=== PATIENT | male | born 1965 | race Asian ===

== ENCOUNTER 2019-11-07 12:56 | Inpatient (IN) | payer OTHER ==
--- NOTE | 2019-11-07 15:35 | BHS.RME ---
Substance Use & Tx History - Substance Use History Alcohol Substance amount: 6 packs Frequency of use: Daily Substance route: Oral Date of Last Use: 11/06/19 Cannabis Substance amount: $20 Frequency of use: Less than 3 times per week Substance route: Smoking Date of Last Use: 11/04/19 Heroin Substance amount: $40 Frequency of use: More than 3 times per week Substance route: Injection (ex: intravenous or skin popping) Date of Last Use: 11/06/19 Cocaine-Crack Substance amount: $20 Frequency of use: Daily Substance route: Smoking Date of Last Use: 11/06/19 Xanax Substance amount: 6 mg Frequency of use: Daily Substance route: Oral Date of Last Use: 11/07/19 (prescribed) - Last Treatment Date of last treatment: Jasmine Bartlett 2 years ago Where was last treatment: Detox Physical/Psych/Mental Status - Behavior General Behavior: Increased activity (restlessness, agitation) Eye Contact: Normal Other Behaviors: Mannerisms - Cooperativeness Cooperativeness: Cooperative - Thinking Thought Processes: Tight, Logical Thought content: Future oriented - Physical Health Problems Is patient presently having any pain?: No Does patient presently have any injuries (include location): No Does patient currently have a fever: No COWS - Scale Resting Pulse: 1= [place] 81-100 Sweatin= Chills/Flushing Restless Observation: 1= Difficult to Sit Still Pupil Size: 1= Pupils >than Normal Bone or Joint Aches: 2= Severe Diffuse Aches Runny Nose/ Eye Tearin= Runny Nose/Eyes GI Upset > 30mins: 2= Nausea/Diarrhea Tremor Observation: 2= Slight Tremor Visible Yawning Observation: 1= 1-2x During Session Anxiety or Irritability: 1=Feels Anxious/Irritable Goose Flesh Skin: 3=Piloerection COWS Score: 17 CIWA Nausea/Vomitin Muscle Tremors: 2 Anxiety: 2 Agitation: 2 Paroxysmal Sweats: 2 Orientation: 0-Oriented Tacttile Disturbances: 0-None Auditory Disturbances: 2-Mild Harshness/Frighten Visual Disturbances: 1-Very Mild Sensitivity Headache: 2-Mild CIWA-Ar Total Score: 15
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
--- NOTE | 2019-11-07 16:12 | HP ---
COWS - Scale Resting Pulse: 1= [place] 81-100 Sweatin= Chills/Flushing Restless Observation: 1= Difficult to Sit Still Pupil Size: 1= Pupils >than Normal Bone or Joint Aches: 2= Severe Diffuse Aches Runny Nose/ Eye Tearin= Runny Nose/Eyes GI Upset > 30mins: 2= Nausea/Diarrhea Tremor Observation: 2= Slight Tremor Visible Yawning Observation: 1= 1-2x During Session Anxiety or Irritability: 1=Feels Anxious/Irritable Goose Flesh Skin: 3=Piloerection COWS Score: 17 CIWA Score Nausea/Vomitin Muscle Tremors: 2 Anxiety: 2 Agitation: 2 Paroxysmal Sweats: 2 Orientation: 0-Oriented Tacttile Disturbances: 0-None Auditory Disturbances: 2-Mild Harshness/Frighten Visual Disturbances: 1-Very Mild Sensitivity Headache: 2-Mild CIWA-Ar Total Score: 15 - Admission Criteria OASAS Guidelines: Admission for Medically Managed Detox: Requires at least one of the followin. CIWA greater than 12 2. Seizures within the past 24 hours 3. Delirium tremens within the past 24 hours 4. Hallucinations within the past 24 hours 5. Acute intervention needed for co occurring medical disorder 6. Acute intervention needed for co occurring psychiatric disorder 7. Severe withdrawal that cannot be handled at a lower level of care (continued vomiting, continued diarrhea, abnormal vital signs) requiring intravenous medication and/or fluids 8. Patient presents the following: CIWA greater than 12 Admission Criteria Met: Admission criteria met Admitting History and Physical - Smoking History Smoking history: Current every day smoker Have you smoked in the past 12 months: Yes Admission [facility] Chief Complaint: I need detox Allergies/Adverse Reactions: Allergies Allergy/AdvReac Type Severity Reaction Status Date / Time No Known Allergies Allergy Verified 11/07/19 15:49 History of Present Illness: 54 year old man presents for detox from alcohol Patient History - Patient Medical History Hx Cardiac Disorders: No Hx Hypertension: No Hx Seizures: No Hx Diabetes: No Hx Gastrointestinal Disorders: No Hx Genitourinary Disorders: No Hx Sexually Transmitted Disorders: No Hx Renal Disease (ESRD): No Hx Depression: Yes Hx Suicide Attempt: No Hx Schizophrenia: No - Patient Surgical History Past Surgical History: Yes Hx Neurologic Surgery: No Hx Cataract Extraction: No Hx Cardiac Surgery: No Hx Lung Surgery: No Hx Breast Surgery: No Hx Breast Biopsy: No Hx Abdominal Surgery: No Hx Appendectomy: No Hx Cholecystectomy: No Hx Genitourinary Surgery: No Hx Section: No Hx Orthopedic Surgery: (LUMBAR FUSION 2019) Anesthesia Reaction: No - PPD History Previous Implant?: Yes Documented Results: Negative w/o proof Implanted On Prior [facility] Admission?: No - Smoking Cessation Smoking history: Current every day smoker Have you smoked in the past 12 months: Yes Hx Chewing Tobacco Use: No Initiated information on smoking cessation: Yes
[2019-11-07 16:13] VITALS: BMI 20.2
[2019-11-07] MEDS ORDERED: MAG HYDROX/AL HYDROX/SIMETH 30 ML UNIT-DOSE CUP PO PRN (16:27)
[2019-11-07] MEDS ORDERED: MAGNESIUM CITRATE 300 ML BOTTLE PO PRN (16:27)
[2019-11-07] MEDS ORDERED: NICOTINE POLACRILEX 2 MG GUM BUC PRN (16:27)
[2019-11-07] MEDS ORDERED: MAGNESIUM HYDROX 2400MG/30ML ORAL SUSPENSION 30 ML CUP PO PRN (16:27)
[2019-11-07] MEDS ORDERED: MENTHOL/PHENOL 1 EACH UD MM PRN (16:27)
[2019-11-07] MEDS ORDERED: ONDANSETRON *ODT* 4 MG TABLET SL ONE (16:27)
[2019-11-07] MEDS ORDERED: IBUPROFEN 400 MG TABLET (FP) PO PRN (16:27)
[2019-11-07] MEDS ORDERED: LORazepam 1 MG TABLET PO PRN (16:27)
[2019-11-07] MEDS ORDERED: hydrOXYzine PAMOATE 25 MG CAPSULE (FP) PO PRN (16:27)
[2019-11-07] MEDS ORDERED: BISMUTH SUBSALICYLATE 524 MG/30 ML UD PO PRN (16:27)
[2019-11-07] MEDS ORDERED: ACETAMINOPHEN 325 MG TABLET (FP) PO PRN ×2 (16:27)
[2019-11-07] MEDS ORDERED: METHOCARBAMOL 500 MG TABLET PO PRN (16:27)
[2019-11-07] MEDS: LORazepam 2 MG TABLET PO SCH ×2 (17:30→22:07)
[2019-11-07] MEDS: MELATONIN 5 MG TABLETS PO SCH (22:07)
[2019-11-07] MEDS: THIAMINE HCL 100 MG TABLET (FP) PO SCH (22:07)
[2019-11-08] MEDS: LORazepam 2 MG TABLET PO SCH ×4 (05:17→22:08)
--- NOTE | 2019-11-08 09:31 | PN ---
S CIWA - CIWA Score Nausea/Vomitin-Mild Nausea/No Vomiting Muscle Tremors: 4-Moderate,w/Arms Extend Anxiety: 4-Mod. Anxious/Guarded Agitation: 0-Normal Activity Paroxysmal Sweats: 1-Minimal Palms Moist Orientation: 0-Oriented Tacttile Disturbances: 1-Very Mild Itch/Numbness Auditory Disturbances: 0-None Visual Disturbances: 0-None Headache: 2-Mild CIWA-Ar Total Score: 13 BHS Progress Note (SOAP) Subjective: 54 years old male admitted on 11/07/19 for alcohol withdrawal sx management treating with ativan detox regiment methadone 125 mg po daily mr anguiano is taking xanax 2 mg po tid daily fill monthly last refilled 11/04/19 Objective: 11/08/19 09:35 Vital Signs - 24 hr 11/07/19 11/07/19 11/07/19 16:09 16:18 17:06 Temperature 98.2 F 98.2 F 97.1 F L Pulse Rate 81 81 60 Respiratory 18 18 18 Rate Blood Pressure 99/59 L 99/59 L 115/70 O2 Sat by Pulse 95 Oximetry (%) 11/07/19 11/08/19 11/08/19 20:38 06:44 08:35 Temperature 97.5 F L 97.1 F L 97.5 F L Pulse Rate 70 67 74 Respiratory 18 18 20 Rate Blood Pressure 102/63 100/60 101/61 O2 Sat by Pulse 96 97 Oximetry (%) 11/08/19 09:35 lab pending Assessment: 11/08/19 09:35 alcohol withdrawal Plan: ativan regiment
[2019-11-08] MEDS ORDERED: METHADONE HCL 40 MG DISPERSABLE TABLET ONE (09:34)
[2019-11-08] MEDS ORDERED: METHADONE HCL 5 MG TABLET ONE (09:34)
[2019-11-08] MEDS ORDERED: NICOTINE 14 MG/24 HOURS TOPICAL PATCH TD SCH (10:00)
[2019-11-08] MEDS ORDERED: SERTRALINE HCL 50 MG TABLET (FP) PO ONE (10:00)
[2019-11-08] MEDS ORDERED: METHADONE 120 MG, METHADONE 5 MG PO ONE (10:00)
[2019-11-08] MEDS ORDERED: METHADONE HCL 10 MG TABLET PO ONE (10:00)
[2019-11-08] MEDS ORDERED: PRENATAL VITAMINS W/ FOLIC ACID TABLET (FP) PO SCH (10:00)
[2019-11-08 11:02] LABS: HEMATOCRIT 40.4 % (35.4-49); HEMOGLOBIN 13.1 GM/dL (11.7-16.9); MCH 29.6 pg (25.7-33.7); MCHC 32.4 g/dl (32.0-35.9); MEAN CELL VOLUME 91.6 fl (80-96); MEAN PLT VOLUME 8.6 fl (7.5-11.1); PLATELET COUNT 234 K/MM3 (134-434); RBC 4.41 M/mm3 (4.00-5.60); RDW 13.6 % (11.9-15.9); WHITE BLOOD COUNT 4.3 K/mm3 (4.0-10.0)
[2019-11-08 11:15] LABS: ALBUMIN 3.4 g/dl (3.4-5.0); BILIRUBIN,TOTAL 0.2 mg/dL (0.2-1); BLOOD UREA NITROGEN 16.7 mg/dL (7-18); CALCIUM 9.2 mg/dL (8.5-10.1); CREATININE 0.9 mg/dL (0.55-1.3); POTASSIUM 4.1 mmol/L (3.5-5.1)
--- NOTE | 2019-11-08 16:09 | CONSULT ---
[facility] Psychiatric Consult - Data Date of interview: 11/08/19 Admission source: [facility] Identifying data: First visit to [facility] and admission to [address] [place] [address] for this [place]-born male self-referred for detoxification treatment. AURELIANO issues : alcohol, opioid, cocaine, nicotine. Patient is single, father of one, homeless, unemployed and supported on food stamps. Substance Abuse History: Discused with the patient. Mr Ashford admits to a long standing history of substance abuse (alcohol, cocaine, heroin, nicotine, marihuana). Uses xanax as well (prescribed). Patient is currently on methadone maintenance (1225 mg/day) at the [facility] program in [place], [place]. Smoking history: Current every day smoker. Have you smoked in the past 12 months: Yes. Aproximately how many cigarettes per day: 10. Hx Chewing Tobacco Use: No. Initiated information on smoking cessation: Yes. 'Breaking Loose' booklet given: 11/07/19. History of multiple AURELIANO treatment failures. Medical History: Medical profile is remarkable for hepatitis C (treated), antecedent of withdrawal-related seizures and laminectomy (lumbar fusion in 2018). Psychiatric History: Patient denies history of psychiatric hospitalizations. He has, however, been diagnosed with MDD and he is currently seeing a psychiatrist at the [facility] for mediucation management (xanax + zoloft). Doses not recalled. Mr Ashford denies history of suicide attempts. Physical/Sexual Abuse/Trauma History: Patient denies. Additional Comment: No toxicology for review. Mental Status Exam - Mental Status Exam Alert and Oriented to: Time, Place, Person Cognitive Function: Good Patient Appearance: Well Groomed Mood: Nervous, Withdrawn Affect: Mood Congruent, Constricted Patient Behavior: Fatigued, Appropriate, Cooperative Speech Pattern: Clear, Appropriate (fluent in ecuadorean) Voice Loudness: Normal Thought Process: Intact, Goal Oriented Thought Disorder: Not Present Hallucinations: Denies Suicidal Ideation: Denies Homicidal Ideation: Denies Insight/Judgement: Poor Sleep: Fair Appetite: Good Gait/Station: Other (not observed out of bed) Psychiatric Findings - Problem List ([place] 1, 2,3) (1) Alcohol dependence with withdrawal Current Visit: Yes Status: Acute Qualifiers: Complication of substance-induced condition: uncomplicated Qualified Code(s): F10.230 - Alcohol dependence with withdrawal, uncomplicated (2) Nicotine dependence Current Visit: Yes Status: Chronic Qualifiers: Nicotine product type: cigarettes Substance use status: uncomplicated Qualified Code(s): F17.210 - Nicotine dependence, cigarettes, uncomplicated (3) Cocaine abuse Current Visit: Yes Status: Chronic (4) Marijuana abuse Current Visit: Yes Status: Chronic (5) Substance induced mood disorder Current Visit: Yes Status: Suspected (6) History of depression Current Visit: Yes Status: Chronic - Initial Treatment Plan Initial Treatment Plan: Psychoeducation. Sleep hygiene. Detoxification. Support. Resumed, at patient's request : zoloft 50 mg po daily. Side effects/benefits discussed with the patient. Consent (verbal) granted to MD. Ngo.
[2019-11-08] MEDS: THIAMINE HCL 100 MG TABLET (FP) PO SCH (22:08)
[2019-11-08] MEDS: MELATONIN 5 MG TABLETS PO SCH (22:10)
[2019-11-09] MEDS ORDERED: METHADONE HCL 5 MG TABLET ONE (04:11)
[2019-11-09] MEDS ORDERED: METHADONE HCL 40 MG DISPERSABLE TABLET ONE (04:11)
[2019-11-09] MEDS ORDERED: LORazepam 1 MG TABLET PO SCH (05:00)
[2019-11-09] MEDS ORDERED: METHADONE 120 MG, METHADONE 5 MG PO SCH (06:00)
[2019-11-09] MEDS ORDERED: METHADONE HCL 40 MG DISPERSABLE TABLET PO SCH (06:00)
--- NOTE | 2019-11-09 09:01 | DS ---
[facility] Detox Discharge Summary Admission Date: 11/07/19 Discharge Date: 11/09/19 - History Present History: Alcohol Dependence Additional Comments: 54 years old male admitted on 11/07/19 for alcohol withdrawal sx management treated with ativan detox regiment seen by psychiatrist dayan oswald mr anguiano prefers to leave the detox today instead of estimated discharge day of 11/11/19 due to alcohol withdrawal "much better today" but benzo withdrawal has trouble to tolerate that mr anguiano perfers return home to take xanax "been prescribed" that he received 90 pills on 11/04/19 mr anguiano states that he feels better from alcohol withdrawal but benzo withdrawal continue troubling him mr anguiano prefers to return to home to continue taking xanax as prescribed and return to methadone program for behavior and psychosocial therapies General Appearance: Yes: No Apparent Distress HEENTM: Yes: Hearing grossly Normal, Normal ENT Inspection, Normocephalic, Normal Voice Respiratory: Yes: Chest Non-Tender, Lungs Clear, Normal Breath Sounds, No Respiratory Distress, No Accessory Muscle Use Neck: Yes: No masses,lesions,Nodules, Supple Breast: Yes: Breast Exam Deferred Cardiology: Yes: Regular Rhythm, Regular Rate, S1, S2 Abdominal: Yes: Normal Bowel Sounds, Non Tender Genitourinary: Yes: Within Normal Limits Back: Yes: Normal Inspection Musculoskeletal: Yes: full range of Motion Extremities: Yes: Tremors Neurological: Yes: Fully Oriented, Alert, Normal Mood/Affect, Normal Response Integumentary: Yes: Cold, Other (multiple scars on lower extremities) Lymphatic: Yes: Within Normal Limits Pertinent Past History: time for discharge 55 minutes treatment team met with mr anguiano to discuss the benefit of ativan regiment completion mr anguiano states that his benzo withdrawal feelings needed to be addressed at home by xanax 2 mg po tid mr anguiano states that he is returning to his methadone program for behavioral and psychosocial therapies - Physical Exam Results Vital Signs: Vital Signs Temperature 97.1 F L 11/09/19 06:02 Pulse Rate 74 11/09/19 06:02 Respiratory Rate 18 11/09/19 06:02 Blood Pressure 118/75 11/09/19 06:02 O2 Sat by Pulse Oximetry (%) 98 11/09/19 06:02 Pertinent Admission Physical Exam Findings: alcohol withdrawal Vital Signs - 24 hr 11/08/19 11/08/19 11/08/19 12:34 16:19 20:14 Temperature 97.3 F L 97.3 F L 97.5 F L Pulse Rate 90 88 79 Respiratory 18 18 18 Rate Blood Pressure 101/67 111/70 120/81 O2 Sat by Pulse 97 96 Oximetry (%) 11/09/19 11/09/19 06:02 08:30 Temperature 97.1 F L 97.3 F L Pulse Rate 74 108 H Respiratory 18 18 Rate Blood Pressure 118/75 122/73 O2 Sat by Pulse 98 Oximetry (%) Laboratory Tests 11/07/19 11/08/19 11/08/19 04:00 08:00 08:00 WBC RBC Hgb Hct MCV MCH MCHC RDW Plt Count MPV Sodium Potassium Chloride Carbon Dioxide Anion Gap BUN Creatinine Est GFR (CKD-EPI)AfAm Est GFR (CKD-EPI)NonAf Random Glucose Calcium Total Bilirubin AST ALT Alkaline Phosphatase Total Protein Albumin Syphilis Serology Non-reactive COVID-19 (JOSELIN) Not detected HIV Ag/Ab Combo Qual Negative 11/08/19 11/08/19 08:00 08:00 WBC 4.3 RBC 4.41 Hgb 13.1 Hct 40.4 MCV 91.6 MCH 29.6 MCHC 32.4 RDW 13.6 Plt Count 234 MPV 8.6 Sodium 140 Potassium 4.1 Chloride 104 Carbon Dioxide 31 Anion Gap 4 L BUN 16.7 Creatinine 0.9 Est GFR (CKD-EPI)AfAm 113.41 Est GFR (CKD-EPI)NonAf 97.85 Random Glucose 99 Calcium 9.2 Total Bilirubin 0.2 AST 22 ALT 15 Alkaline Phosphatase 130 H Total Protein 7.0 Albumin 3.4 Syphilis Serology COVID-19 (JOSELIN) HIV Ag/Ab Combo Qual lab noted - Treatment Hospital Course: Detox Protocol Followed, Detoxed Safely, Responded well, Di scharged Condition Good, Rehab Referral Accepted Patient has Accepted a Rehab Referral to: methadone maintenance / xanax monthly prescription - Medication Discharge Medications: Ambulatory Orders Sertraline HCl [Zoloft -] 50 mg PO DAILY 11/07/19 - Diagnosis (1) Alcohol dependence with withdrawal Status: Acute Qualifiers: Complication of substance-induced condition: uncomplicated Qualified Code(s): F10.230 - Alcohol dependence with withdrawal, uncomplicated (2) Methadone maintenance therapy patient Status: Chronic (3) Nicotine dependence Status: Acute Qualifiers: Nicotine product type: cigarettes Substance use status: in withdrawal Qualified Code(s): F17.213 - Nicotine dependence, cigarettes, with withdrawal (4) Substance induced mood disorder Status: Suspected - AMA Did Patient Leave Against Medical Advice: No CIWA Score - CIWA Score Nausea/Vomitin-No Nausea/No Vomiting Muscle Tremors: 4-Moderate,w/Arms Extend Anxiety: 3 Agitation: 0-Normal Activity Paroxysmal Sweats: No Perspiration Orientation: 0-Oriented Tacttile Disturbances: 0-None Auditory Disturbances: 0-None Visual Disturbances: 0-None Headache: 1-Very Mild CIWA-Ar Total Score: 8
[2019-11-09 09:08] VITALS: BP 122/73; PULSE 108; TEMP 97.3
[2019-11-09] MEDS ORDERED: SERTRALINE HCL 50 MG TABLET (FP) PO SCH (10:00)
[2019-11-10] MEDS ORDERED: LORazepam 0.5 MG TABLET PO PRN
[2019-11-10] MEDS ORDERED: LORazepam 0.5 MG TABLET PO SCH (05:00)
[2019-11-11] MEDS ORDERED: LORazepam 0.5 MG TABLET PO ONE (05:00)
== END 2019-11-09 09:47 | disposition home or self-care (01) | DRG 773 ==
LOC: YASAS 12:56 → Y3N 15:41
PROVIDERS: ADMIT Allergy & Immunology; ATTEND Allergy & Immunology
PROC: HZ2ZZZZ Detoxification Services for Substance Abuse Treatment (ICD-10-PCS; principal; 2019-11-07)
DX: F10.230 Alcohol dependence with withdrawal, uncomplicated (principal); F11.20 Opioid dependence, uncomplicated; F14.10 Cocaine abuse, uncomplicated; F12.10 Cannabis abuse, uncomplicated; F17.213 Nicotine dependence, cigarettes, with withdrawal; F19.24 Other psychoactive substance dependence with psychoactive substance-induced mood disorder; Z86.69 Personal history of other diseases of the nervous system and sense organs; Z86.19 Personal history of other infectious and parasitic diseases
CPT/HCPCS: 36415; 80053; 85027; 86780; 87389; U0003